=== PATIENT | male | born 1995 | race Two or more races ===

== ENCOUNTER 2024-02-11 17:48 | Inpatient (IN) | payer MEDICAID, OTHER ==
[~2024-02-11] VITALS: Ht 190.5 cm; Wt 87.1 kg
[2024-02-11] MEDS: levETIRAcetam 1000 mg/100ml 100 ML IV ONE (18:22)
[2024-02-11 18:51] LABS: Hematocrit 28.7 % (41.0-53.0)
[2024-02-11 18:53] LABS: Mean Corpuscular Hemoglobin 21.9 pg (28.0-32.0); Mean Corpuscular Hgb Conc. 31.3 g/dL (32.0-36.0); Mean Corpuscular Volume 69.9 fL (80.0-100.0); Red Blood Cells 4.11 10^6/uL (4.5-5.90); White Blood Cell 6.9 10^3/uL (4.4-10.8)
[2024-02-11 18:55] LABS: Chloride 109 mmol/L (98-107); Potassium 3.3 mmol/L (3.5-5.1); Sodium 142 mmol/L (136-145)
[2024-02-11 18:56] LABS: Anion Gap 7 (5-15); Calcium 9.4 mg/dL (8.7-10.4); Carbon Dioxide 26 mmol/L (20-30)
[2024-02-11 18:57] LABS: Red Cell Distribution Width 22.3 % (11.8-14.3)
[2024-02-11 19:01] LABS: BUN/Creatinine Ratio 10.3 (10.0-20.0); Blood Urea Nitrogen 9 mg/dL (9-23); Glucose 101 mg/dL (74-106)
[2024-02-11 19:55] LABS: Anisocytosis Slight; Hypochromia Slight; Large Platelets FEW; Macrocytosis Slight; Ovalocytes FEW; Platelet Estimate Decrea
[2024-02-11 19:57] LABS: Stomatocytes Few; Target Cell FEW
[2024-02-11 20:01] LABS: Band Neutrophils % (manual) 0; Basophils % (manual) 0 (0.0-2.0); Blast Cells 0; Metamyelocytes % 0; Myelocytes % 0; Promyelocytes % 0; Reactive Lymphocytes 0
[2024-02-11 20:02] LABS: Eosinophils % (manual) 2 (0-7); Lymphocytes % (manual) 25 (10.0-50.0); Monocytes % (manual) 14 (0-12)
[2024-02-11 20:25] LABS: Blood Alcohol < 3.0 mg/dL (<10)
[2024-02-11] MEDS ORDERED: DOCUSATE SOD 100 MG CAP PO PRN (21:45)
[2024-02-11] MEDS ORDERED: ACETAMINOPHEN 325 MG TAB PO PRN (21:45)
[2024-02-11] MEDS ORDERED: ONDANSETRON HCL 4 MG/2 ML VIAL IV PRN (21:45)
[2024-02-11] MEDS ORDERED: NITROGLYCERIN 0.4 MG SL TAB SL PRN (22:00)
[2024-02-11 22:07] LABS: Amphetamine Screen, Urine Neg (NEGATIVE); Barbiturate Scree,Urine Neg (NEGATIVE); Benzodiazephine Screen, Urine Pos (NEGATIVE); Cocaine Screen, Urine Neg (NEGATIVE); Opiate Scree,Urine Neg (NEGATIVE); Phencyclidine Screen, Urine Neg (NEGATIVE)
[2024-02-11 22:08] LABS: Cannabinoid Screen, Urine Pos (NEGATIVE)
[2024-02-12 05:06] LABS: Hemoglobin 9.2 g/dL (13.5-17.5); White Blood Cell 5.2 10^3/uL (4.4-10.8)
[2024-02-12 05:08] LABS: Hematocrit 29.3 % (41.0-53.0); Mean Corpuscular Hgb Conc. 31.3 g/dL (32.0-36.0); Mean Corpuscular Volume 70.4 fL (80.0-100.0); Red Blood Cells 4.16 10^6/uL (4.5-5.90)
[2024-02-12 05:22] LABS: Red Cell Distribution Width 22.6 % (11.8-14.3)
[2024-02-12 05:24] LABS: Band Neutrophils % (manual) 0; Basophils % (manual) 0 (0.0-2.0); Blast Cells 0; Metamyelocytes % 0; Myelocytes % 0; Promyelocytes % 0; Reactive Lymphocytes 0
[2024-02-12 05:28] LABS: Alanine Aminotransferase 61 U/L (7-40); Albumin 3.8 g/dL (3.2-4.8); Alkaline Phosphatase 110 U/L (46-116); Anion Gap 6 (5-15); Aspartate Aminotransferase 148 U/L (13-40); BUN/Creatinine Ratio 10.5 (10.0-20.0); Bilirubin, Total 3.5 mg/dL (0.2-1.0); Blood Urea Nitrogen 10 mg/dL (9-23); Calcium 9.2 mg/dL (8.7-10.4); Carbon Dioxide 29 mmol/L (20-30); Chloride 105 mmol/L (98-107); Glucose 107 mg/dL (74-106); Potassium 3.2 mmol/L (3.5-5.1); Sodium 140 mmol/L (136-145); Total Protein 7.6 g/dL (5.7-8.2)
[2024-02-12] MEDS: SODIUM CHLOR 0.9% PF (SALINE LOCK) 10ML VIAL/SYR IV SCH (06:00)
[2024-02-12] MEDS: levETIRAcetam 1000 mg/100ml 100 ML IV SCH (06:54)
[2024-02-12] MEDS: POTASSIUM CHL 20 Meq TABLET PO ONE (07:29)
[2024-02-12 07:33] VITALS: PULSE 81; RESP 16; O2SAT 95
[2024-02-12 08:04] LABS: Anisocytosis Slight; Eosinophils % (manual) 3 (0-7); Hypochromia Slight; Lymphocytes % (manual) 11 (10.0-50.0); Macrocytosis Slight; Monocytes % (manual) 12 (0-12); Ovalocytes FEW; Platelet Estimate Decreased; Smudge Cells 1 /100 WBC; Stomatocytes Few
[2024-02-12] MEDS: POTASSIUM CHLORIDE 40 MEQ, LIDOCAINE 1% (LOCAL ANESTH.) 4 ML in SODIUM CHL 0.9% 250 ML IV ONE (08:15)
[2024-02-12] MEDS ORDERED: LORazepam 2MG/ML-1ML VIAL IV PRN (09:00)
[2024-02-12 09:35] LABS: % Iron Saturation 10.5 % (20-55)
[2024-02-12] MEDS: MORPHINE SULFATE INJ 2 MG/ml SYRG IV PRN (09:40)
[2024-02-12] MEDS: PANTOPRAZOLE 40 MG/10 ML VIAL INJ IV SCH (09:50)
[2024-02-12] MEDS ORDERED: FOLIC ACID 1 mg/0.2ml INJECTION INJ ONE (14:30)
[2024-02-12] MEDS: THIAMINE 100mg/ml INJ (200mg/2ml VIAL) IV ONE (15:01)
[2024-02-12] MEDS: MVI in SODIUM CHLORIDE 0.9% 1,000 ML IVB ONE (15:02)
[2024-02-12] MEDS: FOLIC ACID 1 MG in D5W 5% 50 ML INJ ONE (15:21)
[2024-02-12 18:07] LABS: Urine Bacteria None Seen /hpf (None Seen)
[2024-02-12 18:22] LABS: Urine Blood Negative /uL (Negative); Urine Clarity Clear (Clear); Urine Color Yellow (Yellow); Urine Mucus FEW (None Seen); Urine Protein, UAD Negative (Negative); Urine Specific Gravity 1.019 (1.001-1.035); Urine Urobilinogen 6 mg/dL (Negative); Urine WBC <1 /hpf (0 - 3); Urine pH 6.5 (5.0-9.0)
[2024-02-12 20:00] VITALS: BP 102/52; PULSE 70; RESP 20; TEMP 98.4; O2SAT 98
[2024-02-12] MEDS: MAGNESIUM SULFATE 1GM/100ML 100 ML IV ONE (20:44)
[2024-02-12 23:56] VITALS: PULSE 71; RESP 16; O2SAT 98
[2024-02-13] VITALS (9 sets, daily range): BP systolic 116–125; BP diastolic 62–69; PULSE 63–116; RESP 16–20; TEMP 97.9–100.4; O2SAT 98–99
[2024-02-13] MEDS: HYDROcodone-ACET 5/325MG TAB PO PRN (01:02)
[2024-02-13] MEDS: SODIUM CHLORIDE 0.9% 1,000 ML IV SCH ×2 (01:48→15:30)
[2024-02-13 06:12] LABS: Hemoglobin 8.9 g/dL (13.5-17.5)
[2024-02-13 06:15] LABS: Hematocrit 28.3 % (41.0-53.0); Mean Corpuscular Hemoglobin 22.4 pg (28.0-32.0); Mean Corpuscular Hgb Conc. 31.6 g/dL (32.0-36.0); Mean Corpuscular Volume 70.9 fL (80.0-100.0); Red Blood Cells 3.99 10^6/uL (4.5-5.90)
[2024-02-13 06:34] LABS: Red Cell Distribution Width 22.4 % (11.8-14.3)
[2024-02-13 06:37] LABS: Band Neutrophils % (manual) 0; Basophils % (manual) 0 (0.0-2.0); Blast Cells 0; Metamyelocytes % 0; Myelocytes % 0; Promyelocytes % 0; Reactive Lymphocytes 0
[2024-02-13 06:38] LABS: Calcium 8.6 mg/dL (8.7-10.4); Chloride 106 mmol/L (98-107); Sodium 138 mmol/L (136-145)
[2024-02-13 06:39] LABS: Anion Gap 6 (5-15); Carbon Dioxide 26 mmol/L (20-30)
[2024-02-13 06:44] LABS: BUN/Creatinine Ratio 9.7 (10.0-20.0); Blood Urea Nitrogen 7 mg/dL (9-23); Glucose 96 mg/dL (74-106)
[2024-02-13 06:46] LABS: Creatine Kinase IFCC 578 U/L (46-171)
[2024-02-13 09:22] LABS: Anisocytosis Slight; Eosinophils % (manual) 6 (0-7); Hypochromia Moderate; Lymphocytes % (manual) 22 (10.0-50.0); Monocytes % (manual) 11 (0-12); Platelet Estimate Decreased
[2024-02-13] MEDS: LORazepam 2MG/ML-1ML VIAL IV SCH (13:35)
[2024-02-13] MEDS: FOLIC ACID 1 MG TAB PO ONE (18:14)
[2024-02-13] MEDS ORDERED: LORazepam 2MG/ML-1ML VIAL IV PRN (20:15)
[2024-02-13] MEDS: THIAMINE HCL 100 MG TAB PO ONE (22:48)
[2024-02-13] MEDS: THIAMINE HCL 100 MG TAB PO SCH (22:48)
[2024-02-13] MEDS: chlordiazePOXIDE HCL 25 MG CAP PO ONE (22:49)
[2024-02-14 01:00] VITALS: BP 93/51; PULSE 80; RESP 20; TEMP 98.3; O2SAT 99
[2024-02-14] MEDS: chlordiazePOXIDE HCL 25 MG CAP PO SCH (01:18)
[2024-02-14 05:00] VITALS: BP 94/55; PULSE 73; RESP 20; TEMP 98.4; O2SAT 98
[2024-02-14 06:21] LABS: Anion Gap 5 (5-15); Carbon Dioxide 27 mmol/L (20-30); Chloride 106 mmol/L (98-107); Potassium 3.8 mmol/L (3.5-5.1); Sodium 138 mmol/L (136-145)
[2024-02-14 06:23] LABS: Calcium 8.7 mg/dL (8.7-10.4)
[2024-02-14 06:28] LABS: BUN/Creatinine Ratio 9.9 (10.0-20.0); Blood Urea Nitrogen 7 mg/dL (9-23); Creatine Kinase IFCC 298 U/L (46-171); Glucose 92 mg/dL (74-106)
[2024-02-14 06:38] LABS: Mean Corpuscular Hgb Conc. 31.7 g/dL (32.0-36.0); Mean Corpuscular Volume 70.9 fL (80.0-100.0)
[2024-02-14 06:41] LABS: Hematocrit 27.8 % (41.0-53.0); Hemoglobin 8.8 g/dL (13.5-17.5); Mean Corpuscular Hemoglobin 22.4 pg (28.0-32.0); Red Blood Cells 3.92 10^6/uL (4.5-5.90)
[2024-02-14 06:45] LABS: Red Cell Distribution Width 23.6 % (11.8-14.3)
[2024-02-14 06:46] LABS: Band Neutrophils % (manual) 0; Basophils % (manual) 0 (0.0-2.0); Blast Cells 0; Metamyelocytes % 0; Myelocytes % 0; Promyelocytes % 0; Reactive Lymphocytes 0
[2024-02-14 08:00] VITALS: PULSE 71
[2024-02-14 08:27] LABS: Eosinophils % (manual) 4 (0-7); Lymphocytes % (manual) 22 (10.0-50.0); Monocytes % (manual) 16 (0-12)
[2024-02-14 08:28] LABS: Anisocytosis Slight; Hypochromia Moderate; Platelet Estimate Decreased
[2024-02-14 09:00] VITALS: BP 114/63; PULSE 83; RESP 16; TEMP 98.9; O2SAT 98
[2024-02-14] MEDS ORDERED: THIA100T13 PO (09:30)
[2024-02-14] MEDS ORDERED: GABA-1250 PO ×2 (09:30→09:33)
[2024-02-14] MEDS ORDERED: FOLI-119 PO (09:30)
[2024-02-14 09:43] LABS: Hepatitis B Core Total AB Negative (Negative)
[2024-02-14 10:32] LABS: Hepatitis A Total Antibody Positive (Negative); Hepatitis B Surface Antibody Negative (Negative); Hepatitis B Surface Antigen Negative (Negative); Hepatitis C Antibody Negative (Negative)
[2024-02-14] MEDS: FOLIC ACID 1 MG TAB PO SCH (11:09)
[2024-02-14 13:00] VITALS: BP 114/68; PULSE 77; RESP 17; TEMP 98.9; O2SAT 98
[2024-02-14 14:32] VITALS: BP 114/68; PULSE 77; RESP 17; TEMP 98.9; O2SAT 98
== END 2024-02-14 16:07 | disposition home or self-care (01) | DRG 52 ==
LOC: EDBD 17:48 → ER 17:48 → TELE 22:00 → TELE-E-ADS 02-12 23:45
PROVIDERS: ADMIT Internal Medicine Pulmonary Disease; ATTEND Internal Medicine Pulmonary Disease
DX: G93.41 Metabolic encephalopathy (principal); D61.818 Other pancytopenia; M62.82 Rhabdomyolysis; G40.909 Epilepsy, unspecified, not intractable, without status epilepticus; D64.9 Anemia, unspecified; F10.139 Alcohol abuse with withdrawal, unspecified; Y90.9 Presence of alcohol in blood, level not specified; Z83.3 Family history of diabetes mellitus; Y92.89 Other specified places as the place of occurrence of the external cause
CPT/HCPCS: 36415; 70450; 70551; 71045; 80048; 80053; 80307; 80320; 81001; 82550; 83540; 83550; 83605; 83735; 85007; 85025; 85027; 86703; 86704; 86706; 86708; 86803; 86850; 86900; 86901; 87081; 87340; 95819; 96365; G0378; J2001; J2470; J7060